=== PATIENT | female | born 1925 | race Caucasian/White ===

== ENCOUNTER 2016-10-19 20:10 | Inpatient (IN) | payer OTHER, BC ==
[~2016-10-19] VITALS: Ht 165.1 cm; Wt 52.6 kg
--- NOTE | ~2016-10-19 | EEG ---
[facility] [place] [address] ELECTROENCEPHALOGRAM Name: VICTOR M JEONG Room #: 463-P ADM IN M.R.#: [id number] Admission: 10/19/16 Attend Phys: Edin Waters MD Discharge: Date of : [birth year] Report #: [id number] THIS REPORT FOR: //name// CC: Fernando Waters DATE OF EE10/20/2016. This patient is being evaluated for the possibility of stroke. EEG was done by placing the electrodes by standard 10-20 system of electrode placement. Both referential and sequential montages were used for recording. Background activity does go up to about 8 Hz and 30 microvolt. This is a symmetrical activity. This patient goes to sleep that is associated with bilaterally symmetrical sleep spindle and vertex sharp waves. Throughout the record, no active epileptiform activity was noticed. IMPRESSION: This EEG is intermixed with moderate amount of slowing, but otherwise does not appear to be showing any active epileptiform activity. Thank you very much for this referral. <ELECTRONICALLY SIGNED> By: Kenji Werner MD 10/22/16 1322 1711 2036 Kenji Werner MD /nt
--- NOTE | ~2016-10-19 | HC ---
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 She apparently utilized a manual wheelchair and was able to get around her apartment. She had worsening right arm weakness, decreased sensation and worsening aphasia. The aphasia was noted to be severe and significant decreased use of that right upper extremity. She was evaluated and an MRI showed a large acute infarct left temporal area in the middle cerebral artery distribution. 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 Neurology is involved. She has been downgraded to a pureed diet. She obviously is frustrated with her difficulty in communicating. She is allowed some permissive hypertension. We are seeing her now in rehabilitation medicine consultation. PAST MEDICAL HISTORY: Includes the prior CVA in 2010, she had a humerus fracture in 2014, osteoarthritis, hypertension, anxiety, high cholesterol, lumbar spinal stenosis, hemorrhoids, and she has had a left wrist fracture. PAST SURGICAL HISTORY: Includes right lower leg surgeries including one apparently for a nonunion. She has had a cholecystectomy and GERD. PRIMARY CARE PHYSICIAN: Fernando Vogel MD HABITS: Nonsmoker. No history of ETOH use. MEDICATIONS: Please see the full medication listing. SOCIAL HISTORY: As noted above. She has been living in [facility] with 24-hour care. REVIEW OF SYSTEMS: Did not offer any current complaints of chest pain, shortness of breath, or abdominal discomfort. It was difficult to get the history from her with her significant aphasia. PHYSICAL EXAMINATION: GENERAL: She is a pleasant 89-year-old white female, obviously frustrated with her inability to communicate. She does attempt to say words, but I was unable to understandable what she was saying, appeared to be able to follow basic 1 step commands, but again is frustrated. VITAL SIGNS: Temperature is 98.1, pulse 70, respirations 20, and blood pressure 142/71. [address] [address] CONSULTATION Name: VICTOR M JEONG Room #: 3-[facility] IN .R.#: [id number] Admission: 10/19/16 Attend Phys: Edin Waters MD Discharge: 10/23/16 Date of : [birth year] Report #: [id number] HEENT: She is able to track with EOMs. She appears to have a depressed right nasolabial fold. EXTREMITIES: She does not use the right upper extremity, although she appears to have at least some volitional strength of it, probably less than antigravity. She appears to have functional use of that left upper extremity. Right lower extremity, it was difficult to test volitionally. She appears to have least antigravity strength. Left lower extremity appeared to have functional strength. Tone was slightly decreased, right upper and right lower extremity. I was unable to adequately assess sensation. Functionally, she is max assist with sit to stand. She has fair sitting balance. She is on a pureed diet with honey thickened liquids. ASSESSMENT: 1. Acute left hemispheric cerebrovascular accident with significant increased right hemiparesis and a severe aphasia. 2. Severe dysphagia, on pureed honey. 3. Premorbid cerebrovascular accident in 2010 with some mild right-sided hemiparesis and improved aphasia and dysphagia. 4. History of degenerative arthritis. 5. Hypertension. 6. Low back pain. 7. Elevated cholesterol. 8. Lumbar spinal stenosis. PLAN: Therapies are evaluating. We will be glad to assist regarding rehab therapy needs. She may be a candidate for an acute in-hospital inpatient rehabilitation stay. We will need to follow along with you regarding her rehab therapy needs. <ELECTRONICALLY SIGNED> By: Gaudencio Titus MD 11/29/16 1342 1435 04 Gaudencio Titus MD /nt
--- NOTE | ~2016-10-19 | EKG ---
[place] [address] [facility] [place] [address] ELECTROCARDIOGRAM REPORT Name: VICTOR M JEONG Room #: 463-P ADM IN M.R.#: [id number] Admission: 10/19/16 Attend Phys: Edin Waters MD Discharge: Date of : [birth year] Report #: [id number] THIS REPORT FOR: //name// [facility] ED Test Date: 2016-10-19 Test Time: 20:18:37 Pat Name: VICTOR M JEONG Department: Room: 463 Gender: F Adjunct Psychology Instructor: MZOOK : [id number] Requested By: Chris Trinidad Order Number: [id number] MD: Thang Packer Measurements Intervals Payette Rate: 84 P: ME: QRS: -33 QRSD: 86 T: -10 QT: 416 QTc: 492 Interpretive Statements Baseline artifact Sinus rhythm Nonspecific ST and T wave abnormality Compared to ECG 06/14/2016 17:48:33 No significant change was found Electronically Signed On 10-23-2016 8:11:18 WAREHOUSE INVENTORY CLERK by Thang Packer [email or web address] <ELECTRONICALLY SIGNED> By: Thang Packer MD, [facility] [id number] 17 17 Thang Packer MD, [facility] /EPI
[~2016-10-19 20:10] MED LIST: ACETAMINOPHEN325 M1 PO; AGGRENOX 25 MG1 EACH PO; AGGRENOX CAPSU1 EACH PO; AMBIEN 10 MG TA10 MG PO; AMBIEN PO; AMOXIL 875 MG875 M1 PO; ASPIRIN325 PO; ATIVAN0.5 MG PO; BIOFREEZE118 ML TP; BUSPIRONE HCL5 MG PO; CALCIUM 500 +1 EAC5 PO; CALCIUM 600 +1 EAC1 PO; CENTRUM SILVER1 EAC1 PO; CEPHALEXIN500 MG PO; CLOTRIM ANTIFUN15 GM RECTAL; COLACE100 MG PO; COZAAR 50 MG TA50 M2 PO; DAILY MULTIVIT1 EAC4 PO; DIOVAN 80 MG TA80 M1 PER TUBE; DIOVAN 80 MG TA80 M1 PO; DIOVAN PO; DOXYCYCLINE 10100 MG PO; ENOXAPARIN40 MG/0.1 SUBQ; FAMOTIDINE20 MG PO; FLOMAX0.4 MG PO; GLUCOSAMINE-CH1 EA33 PO; HYDROCODON-ACE1 EA11 PO; HYDROCODON-ACE1 EAC7 PO; HYDROCODONE-AP1 EACH PO; KLOR-CON 1010 MEQ PO; LASIX 20 MG TAB20 MG PO; LEXAPRO 10 MG T10 M1 PO; LIDODERM 5%1 PATC1 TOP; LIPITOR 10 MG10 M1 PO; LIPITOR10 MG PO; LISINOPRIL20 MG PO; MELOXICAM7.5 MG PO; METAMUCIL0.52 GM PO; MIRALAX255 GM PO; MOBIC7.5 MG PO; MORPHINE SULFAT15 M3 PO; MS CONTIN15 MG PO; NORCO 10-325 T1 EACH PO; NORVASC5 MG PO; NYSTATIN15 GM TP; OMEPRAZOLE20 M2 PO; OXYBUTYNIN ER 55 MG PO; OYSTER SHELL C1 EA14 PO; PANTOPRAZOLE SO40 M1 PO; PERCOCET 10-321 EACH; PERCOCET 10-321 EACH PO; PERCOCET 5-3251 EACH PO; PROTONIX40 M2 PO; REFRESH CLASSI1 EACH OP; REFRESH PLUS1 EACH OPHTHALMIC; REMERON15 MG PO; SENOKOT-S1 TA1 GT; SILVADENE20 GM TP; SIMVASTATIN40 MG PO; TEARS NATURALE1 EACH OPHTHALMIC; TEMAZEPAM7.5 MG PO; TRAZODONE HCL50 MG PO; TYLENOL325 MG PO; UNICOMPLEX M TA1 TA1 PO; VICODIN 5-5001 EACH PO; VITAMINC500 PO; VOLTAREN GEL 1100 GM TOP; WELCHOL 625 MG625 MG PO; WELLBUTRIN SR150 MG PO; XANAX 0.5 MG0.5 M1 PO; ZOCOR20 MG PO; ZOLOFT50 MG PO
[2016-10-19 20:12] VITALS: BP 152/83
[2016-10-19 20:29] LABS: POC CA IONIZED 4.7 mg/dL (4.5-5.3); POC CREATININE 1.3 mg/dL (0.6-1.3); POC HEMOGLOBIN 12.9 gm/dL (12.0-15.0); POC POTASSIUM 4.2 mmol/L (3.5-5.1)
[2016-10-19 20:37] LABS: ABSOLUTE NEUTROPHILS 3.2 thou/uL (1.4-8.2); BASOPHILS 0.6 % (0.0-2.0); EOSINOPHILS 2.4 % (0.0-3.0); HEMATOCRIT 37.9 % (37.0-47.0); HEMOGLOBIN 12.1 gm/dL (12.0-15.0); LYMPHOCYTES 36.5 % (24.0-44.0); MCH 28.1 pg (26.0-34.0); MCHC 32.1 % (28.0-37.0); MCV 87.6 fL (80.0-100.0); MONOCYTES 9.8 % (1.0-8.0); PLATELET COUNT 258 thou/uL (150-400); POLYS 50.7 % (36.0-66.0); RBC 4.32 mil/uL (4.20-5.00); RDW 14.8 % (10.5-14.5); WBC 6.3 thou/uL (4.0-11.0)
[2016-10-19 20:40] LABS: MANUAL DIFF NO
[2016-10-19 20:50] LABS: ANION GAP 10 mmol/L (7-16); BUN 18 mg/dL (7-18); CALCIUM 8.8 mg/dL (8.5-10.1); CHLORIDE 109 mmol/L (98-107); CO2 26 mmol/L (21-32); CREATININE 1.3 mg/dL (0.6-1.3); GLUCOSE 118 mg/dL (70-99); POTASSIUM 4.3 mmol/L (3.5-5.1); SODIUM 145 mmol/L (136-145)
[2016-10-19 20:51] LABS: APTT 26.6 Seconds (24.5-32.8); INR 1.1; PROTIME 10.9 Seconds (9.3-11.4)
[2016-10-19 20:59] LABS: ALBUMIN 3.6 g/dL (3.4-5.0); ALKALINE PHOSPHATASE 59 U/L (46-116); SGOT 11 U/L (15-37); SGPT 12 U/L (30-65); TOTAL BILIRUBIN 0.2 mg/dL (<0.1-1.0); TOTAL PROTEIN 6.9 g/dL (6.4-8.2); TROPONIN-I < 0.04 ng/mL (<0.04-0.07)
[2016-10-19 21:05] LABS: URINE BILIRUBIN NEGATIVE (Negative); URINE BLOOD NEGATIVE (Negative); URINE COLOR YELLOW; URINE GLUCOSE-RANDOM* NEGATIVE (Negative); URINE KETONES NEGATIVE (Negative); URINE NITRITE NEGATIVE (Negative); URINE PROTEIN (DIPSTICK) NEGATIVE (Negative); URINE SPECIFIC GRAVITY >= 1.030 (1.003-1.035); URINE UROBILINOGEN 0.2 E.U./dl (0.2-1.0)
[2016-10-19 21:13] LABS: AMP/METHAMP Negative (Negative); BARBITURATES Negative (Negative); BENZODIAZEPINES Negative (Negative); COCAINE Negative (Negative); METHADONE Negative (Negative); OPIATES POSITIVE (Negative); PCP Negative (Negative); THC Negative (Negative)
[2016-10-19 22:40] VITALS: BP 143/90
[2016-10-20 00:09] VITALS: BP 142/84
[2016-10-20 04:37] VITALS: BP 148/99
[2016-10-20 08:00] VITALS: BP 137/71
[2016-10-20 12:00] VITALS: BP 123/74
[2016-10-20 16:00] VITALS: BP 135/89
[2016-10-20 19:48] VITALS: BP 152/73
[2016-10-21 03:52] VITALS: BP 150/74
[2016-10-21 07:55] VITALS: BP 138/69
[2016-10-21 10:50] LABS: CHOLESTEROL 162 mg/dL (<200); HDL CHOLESTEROL 49 mg/dL (>40); LDL CHOLESTEROL 91 mg/dL (<100); TC:HDL 3.3 Ratio (Not establshd); TRIGLYCERIDE 114 mg/dL (<150); VLDL 23 mg/dL (<40)
[2016-10-21 12:00] VITALS: BP 132/68
[2016-10-21 16:00] VITALS: BP 145/71
[2016-10-21 16:10] LABS: FREE T4 1.01 ng/dL (0.82-1.77)
[2016-10-21 20:33] VITALS: BP 137/81
[2016-10-22 02:52] VITALS: BP 128/43
[2016-10-22 06:00] LABS: HEMATOCRIT 31.9 % (37.0-47.0); HEMOGLOBIN 10.3 gm/dL (12.0-15.0); MCH 28.9 pg (26.0-34.0); MCHC 32.3 % (28.0-37.0); MCV 89.4 fL (80.0-100.0); RBC 3.58 mil/uL (4.20-5.00); RDW 14.2 % (10.5-14.5); WBC 6.5 thou/uL (4.0-11.0)
[2016-10-22 06:20] LABS: ALBUMIN 2.8 g/dL (3.4-5.0); CALCIUM 7.8 mg/dL (8.5-10.1); CREATININE 0.8 mg/dL (0.6-1.3); MAGNESIUM 1.7 mg/dL (1.8-2.4); POTASSIUM 3.9 mmol/L (3.5-5.1); TOTAL BILIRUBIN 0.5 mg/dL (<0.1-1.0); TOTAL PROTEIN 5.6 g/dL (6.4-8.2)
[2016-10-22 08:03] VITALS: BP 127/77
[2016-10-22 11:30] VITALS: BP 132/72
[2016-10-22 16:26] VITALS: BP 150/90
[2016-10-22 19:30] VITALS: BP 148/77
[2016-10-23 04:52] VITALS: BP 145/74
[2016-10-23 07:14] VITALS: BP 139/80
[2016-10-23 11:16] VITALS: BP 142/71
[2016-10-23] MEDS ORDERED: ASPIRIN325 PO (17:24)
[2016-10-23] MEDS ORDERED: LIPITOR 20 MG T20 M1 PO (17:24)
== END 2016-10-23 18:34 | DRG 64 ==
LOC: ER 20:10 → EROBS 21:55 → 4W 21:55
PROVIDERS: Emergency Medicine; Nurse Practitioner Family
DX: I63.9 Cerebral infarction, unspecified (principal); G93.41 Metabolic encephalopathy; E43 Unspecified severe protein-calorie malnutrition; G81.91 Hemiplegia, unspecified affecting right dominant side; M19.90 Unspecified osteoarthritis, unspecified site; I10 Essential (primary) hypertension; F41.9 Anxiety disorder, unspecified; M48.06 Spinal stenosis, lumbar region; K21.9 Gastro-esophageal reflux disease without esophagitis; R47.01 Aphasia; R13.10 Dysphagia, unspecified; E78.00 Pure hypercholesterolemia, unspecified; R29.810 Facial weakness; E03.9 Hypothyroidism, unspecified; D64.9 Anemia, unspecified; Z87.81 Personal history of (healed) traumatic fracture; Z90.49 Acquired absence of other specified parts of digestive tract; Z88.6 Allergy status to analgesic agent; Z88.8 Allergy status to other drugs, medicaments and biological substances
CPT/HCPCS: 10045

== ENCOUNTER 2016-10-23 15:01 | Inpatient (IN) | payer OTHER, BC ==
[~2016-10-23] VITALS: Ht 165.1 cm; Wt 51.0 kg
--- NOTE | ~2016-10-23 | H ---
[facility] [place] [place] [address] HISTORY AND PHYSICAL Name: JEONGVICTOR M Room #: 505-P [facility] IN M.R.#: [id number] Admission: 10/23/16 Attend Phys: Gaudencio Titus MD Discharge: 10/31/16 Date of : [birth year] Report #: [id number] THIS REPORT FOR: //name// CC: Gaudencio Vogel DATE OF SERVICE: 10/24/2016 HISTORY OF PRESENT ILLNESS: The patient is an 89-year-old white female, who was previously known to me, who was admitted from her [facility] with worsening right arm weakness, decreased sensation and worsening aphasia. The patient has a prior history of a CVA in 2010, with some residual right-sided weakness and improved communication. She was able to express herself quite well, was living in the [facility], primarily at a wheelchair level, but could participate in feeding herself, groom herself, communicated well and could assist with transfers, although she did need some assistance as well. She was admitted at this time with significantly increased right-sided weakness and markedly worse communication. She was seen by Neurology, underwent an MRI scan, which showed a large acute infarct at the left temporal area in the middle cerebral artery distribution. 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 She was noted to have considerable receptive and expressive aphasia. She also was noted to have significant dysphagia and is on a pureed diet with honey-thickened liquids. She was noted to have a decline functionally and has been admitted now for an acute in-hospital inpatient rehabilitation stay. PAST MEDICAL HISTORY: Includes the prior CVA in 2010. She has had a history of a humerus fracture in 2015, osteoarthritis, hypertension, anxiety, elevated cholesterol, lumbar spinal stenosis, hemorrhoids and she has had a prior left wrist fracture. PAST SURGICAL HISTORY: Includes right lower leg surgeries including one apparently for a nonunion. She has had a cholecystectomy and a GERD. PRIMARY CARE PHYSICIAN: Fernando Vogel M.D. HABITS: Nonsmoker. No history of ETOH usage. MEDICATIONS: Please see the full medication listing. SOCIAL HISTORY: As noted above. She was living at her [facility]. REVIEW OF SYSTEMS: Did not offer any current complaints of chest pain, shortness of breath or abdominal discomfort. No specific complaints of pain involving her extremities. It was difficult to do a full review of systems with her significant communication deficits. [address] [address] HISTORY AND PHYSICAL Name: VICTOR M JEONG Room #: 505-P [facility] IN [facility].#: [id number] Admission: 10/23/16 Attend Phys: Gaudencio Titus MD Discharge: 10/31/16 Date of : [birth year] Report #: [id number] PHYSICAL EXAMINATION: GENERAL: An 89-year-old white female with obvious frustration with her inability to communicate. Some automatic phrases she is able to say. She does follow basic 1-step commands, although has difficulty with any complexity to the commands. VITAL SIGNS: Temperature 98.3, pulse 74, respirations 16 and blood pressure 148/76. HEENT: She does appear to have a depressed right nasolabial fold. EOMs appear to be full. Again, considerable difficulty with communication. She does try to say some words. CHEST: Sounded clear to auscultation. CARDIAC EXAMINATION: Regular rate and rhythm. ABDOMEN: Bowel sounds positive, nontender. EXTREMITIES: She is small statured and thin. No focal calf swelling. NEUROLOGIC: She is able to use that right upper extremity at least to grade 3+/5. Left upper extremity is more of a grade 4 to 4-/5. Right lower extremity appears to be at least antigravity strength. Left lower extremity is more of a grade 4-/5. Tone maybe somewhat decreased, right upper and right lower extremity. I was unable to adequately assess sensation. She has been max assist sit to stand with fair sitting balance. ASSESSMENT: An 89-year-old white female with the following problems: 1. Acute left hemispheric cerebrovascular accident with significant increased right hemiparesis and severe aphasia. 2. Severe dysphagia, on pureed diet with honey-thickened liquids. 3. Premorbid cerebrovascular accident in 2010 with some mild right-sided hemiparesis and improved aphasia and dysphagia. 4. History of degenerative arthritis. 5. Hypertension. 6. Low back pain. 7. Elevated cholesterol. 8. Lumbar spinal stenosis. PLAN: The patient is admitted for acute in-hospital inpatient rehabilitation. From a post-admission physician evaluation perspective, there are no relevant changes since the preadmission screening. Please see the above review of prior and current medical and functional conditions and comorbidities. Please see the patient's previous and current functional status. As far as risk of complications, she does have multiple medical comorbidities, as noted above. Initial plan of care involves the interdisciplinary acute inpatient rehabilitation program with PT and OT and nursing working with her. The interdisciplinary rehab team will be focusing on trying to maximize her functional independence. Her measurable functional goals would be for her to hopefully achieve a functional level at the wheelchair and to improve as far as her swallowing and communication so that she can return back to the [facility] with [address] [address] HISTORY AND PHYSICAL Name: VICTOR M JEONG Room #: 505-P DIS IN M.R.#: [id number] Admission: 10/23/16 Attend Phys: Gaudencio Titus MD Discharge: 10/31/16 Date of : [birth year] Report #: [id number] the assistance she had before. Prognosis is reasonably good, with estimated length of stay probably fairly short depending upon her needs and the assistance that she has at the [facility]. The goal again is to get her back to the point where they can handle her and get her back to her own [place]. Potential barriers would include her decreased functional status and her above-noted medical comorbidities. <ELECTRONICALLY SIGNED> By: Gaudencio Titus MD 11/29/16 1342 0937 1018 Gaudencio Titus MD /nt
--- NOTE | ~2016-10-23 | PLAN ---
[facility] [place] [address] REHAB UNIT PLAN OF CARE Name: VICTOR M JEONG Room #: 505-P [facility] IN M.R.#: [id number] Admission: 10/23/16 Attend Phys: Gaudencio Titus MD Discharge: 10/31/16 Date of : [birth year] Report #: [id number] THIS REPORT FOR: //name// CC: Gaudencio Vogel PROGRESS NOTE/OVERALL PLAN OF CARE DATE OF SERVICE: 10/26/2016. HISTORY OF PRESENT ILLNESS: The patient is seen back today in followup. She is in no distress. Last recorded temperature 36.4, pulse 70, respirations 16, blood pressure 106/73. She is able to do some very simple verbalization. She obvious she has some frustration with this. She has severe expressive and receptive deficits noted. Transfers have been max assist and she has been nonambulatory. Upper extremity dressing is dependent, lower extremity dressing is dependent. She does have the dysphagia and is on mechanical soft with honey thickened liquids. Per nursing, she has been needing around 50% of her meals. Last recorded labs from 10/24/2016 revealed a BUN of only 6 with a creatinine 0.7. ASSESSMENT: 1. Acute left hemispheric cerebrovascular accident with significant increase in right hemiparesis and severe aphasia. 2. Severe dysphagia, on pureed diet with honey thickened liquids. 3. Premorbid cerebrovascular accident in 2010 with some mild right-sided hemiparesis and improved aphasia and dysphagia. 4. History of degenerative arthritis. 5. Hypertension. 6. Low back pain. 7. Elevated cholesterol. 8. Lumbar spinal stenosis. PLAN: The overall plan of care is based on the preadmission screen, post-admission physician evaluation and information garnered from therapy assessments. 1. Estimated length of stay is probably pretty long with her lower functional level. 2. Medical prognosis is reasonably good. 3. Anticipated interventions includes the interdisciplinary acute inpatient rehabilitation program. PT, OT, speech, rehab nursing assisting regarding medication management, skin care prophylaxis, bowel and bladder issues and nursing education. We will have rehabilitation psychology involved and the area development consultant physician team. 4. Anticipated functional outcome would be for her to hopefully get back to the point where she is able to do some of the basic ADLs that she could do before and improve with her swallowing and communication and achieve the mobility that she was able to do at the wheelchair level previous. [facility] [address] [place] [address] REHAB UNIT PLAN OF CARE Name: VICTOR M JEONG Room #: 505-P DIS IN .R.#: [id number] Admission: 10/23/16 Attend Phys: Gaudencio Titus MD Discharge: 10/31/16 Date of : [birth year] Report #: [id number] 5. Discharge destination would be back to the home setting at her [facility] where she had assistance. 6. Expected therapy by discipline includes PT, OT and speech 1 hour per day each five days a week throughout the duration of the acute inpatient rehabilitation stay. <ELECTRONICALLY SIGNED> By: Gaudencio Titus MD 11/13/16 1617 0836 0923 Gaudencio Titus MD /nt
--- NOTE | ~2016-10-23 | D ---
[facility] [place] [address] DISCHARGE SUMMARY Name: VICTOR M JEONG Room #: 505-P [facility] IN M.R.#: [id number] Admission: 10/23/16 Attend Phys: Gaudencio Titus MD Discharge: 10/31/16 Date of : [birth year] Report #: [id number] THIS REPORT FOR: //name// CC: Gaudencio Vogel DATE OF SERVICE: 10/31/2016 ADDENDUM The patient missed some therapy on 10/30/2016, secondary to refusal. Please see the full discharge dictation. Training was completed with the caregiver in preparation for discharge back to the home setting. <ELECTRONICALLY SIGNED> By: Gaudencio Titus MD 11/29/16 1342 1012 1030 Gaudencio Titus MD /nt
--- NOTE | ~2016-10-23 | HC ---
[facility] [place] [address] CONSULTATION Name: VICTOR M JEONG Room #: 505-P [facility] IN M.R.#: [id number] Admission: 10/23/16 Attend Phys: Gaudencio Titus MD Discharge: 10/31/16 Date of : [birth year] Report #: [id number] THIS REPORT FOR: //name// CC: Gaudencio Titus Fernando Vogel DATE OF SERVICE: 10/28/2016 NEUROBEHAVIORAL STATUS EXAM AGE: 89. ATTENDING PHYSICIAN: Gaudencio Titus MD PROFESSOR OF LANGUAGES: Praveen Ashley, PhD. CLINICAL PRESENTATION: The patient is an 89-year-old female admitted to [facility] rehabilitation unit for comprehensive inpatient rehabilitation program to improve functional mobility, activities of daily living and self-care and mental status secondary to deficits from cerebrovascular accident. She was admitted from the [facility] with diminished verbal fluency. The patient is reported to have been functioning at a wheelchair level, but independent with feeding, grooming and communication. However, she began to experience significant right-sided weakness and severe deficits in communication. A MRI revealed a large acute cerebrovascular accident in the left temporal area being served by the middle cerebral artery distribution. 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 At this time, she presents with a receptive and expressive aphasia. Her assessment on admission to the rehabilitation included acute left hemisphere CVA with significant increased right hemiparesis, severe aphasia and dysphagia, premorbid CVA in 2010 with mild right hemiparesis, history of generative arthritis, hypertension, low back pain, elevated hip cholesterol with lumbar spinal stenosis. Her medications are reported to include aspirin, atorvastatin calcium, pantoprazole, dipyridamole, citalopram, multivitamin, oxybutynin chloride, buspirone, hydrocodone barbiturate p.r.n., magnesium hydroxide p.o., bisacodyl rectal at bedtime, sennosides, docusate and acetaminophen. A complete description of her medical condition, history and medications can be found in her medical record. Neuropsychological consultation was requested to provide assistance in the assessment of cognitive and emotional status and to provide recommendations and services. Prior to this most recent medical event, she was living at the [facility] and receiving 24 hour supervision and care. Her about 5 years ago. She has support from a niece and nephew. The patient is reported to have [facility] [address] [place] [address] CONSULTATION Name: VICTOR M JEONG Room #: 505-P [facility] IN M.R.#: [id number] Admission: 10/23/16 Attend Phys: Gaudencio Titus MD Discharge: 10/31/16 Date of : [birth year] Report #: [id number] had a Ph.D. 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 Premorbid level of functioning was very high. TECHNIQUES UTILIZED: Clinical interview, review of medical records, staff consultation and behavioral observation, mental status assessment. EXAMINATION FINDINGS: The patient was alert and cooperative during the assessment. However, she presents with a severe deficits in auditory comprehension and verbal expression. Evidence of perseverative speech was noted during the interview. The patient had severe difficulty in her attempts to accurately communicate her intended meaning. She appeared mildly frustrated with the deficits in communication. However, she was easily redirected and maintained good behavioral control during the assessment. Her presentation suggests poor comprehension with inconsistent fluid speech. Comprehension is severely impaired along with repetition. This type of presentation can be seen in a Wernicke's type of aphasia. DIAGNOSTIC IMPRESSION: Major neurocognitive disorder (dementia), due to vascular disease, with mild degree of frustration, severe at this time. RECOMMENDATIONS: The patient will likely require 24-hour care that includes assistance with the management of medication, finances and nutrition. Reassurance can be provided through nonverbal expressions of praise and compliments about her participation in rehabilitation. complements will assist in reducing anxiety during her treatment program. I will continue to follow as needed. Thank you for the opportunity to provide assessment on this patient. <ELECTRONICALLY SIGNED> By: Praveen Ashley, PhD 11/03/16 1529 1346 1735 Praveen Ashley, PhD /nt
[2016-10-23] MEDS ORDERED: LIPITOR 20 MG T20 M1 PO (17:24)
[2016-10-23] MEDS ORDERED: ASPIRIN325 PO (17:24)
[2016-10-23 18:40] VITALS: BP 167/98
[2016-10-24 04:29] VITALS: BP 148/76
[2016-10-24 06:39] LABS: HEMOGLOBIN 10.9 gm/dL (12.0-15.0); MCH 28.6 pg (26.0-34.0); MCHC 33.1 % (28.0-37.0); MCV 86.4 fL (80.0-100.0); RBC 3.82 mil/uL (4.20-5.00); RDW 14.4 % (10.5-14.5); WBC 7.2 thou/uL (4.0-11.0)
[2016-10-24 06:42] LABS: CALCIUM 8.4 mg/dL (8.5-10.1); CREATININE 0.7 mg/dL (0.6-1.3); POTASSIUM 4.2 mmol/L (3.5-5.1)
[2016-10-24 09:20] VITALS: BP 129/70
[2016-10-24 15:30] VITALS: BP 130/69
[2016-10-25 05:35] VITALS: BP 153/71
[2016-10-25 16:00] VITALS: BP 99/59
[2016-10-26 04:47] VITALS: BP 106/63
[2016-10-27 04:08] VITALS: BP 149/79
[2016-10-27 16:00] VITALS: BP 98/57
[2016-10-27 18:59] LABS: CALCIUM 8.6 mg/dL (8.5-10.1); CREATININE 1.2 mg/dL (0.6-1.3); POTASSIUM 4.1 mmol/L (3.5-5.1)
[2016-10-27 20:00] VITALS: BP 135/62
[2016-10-28 06:11] VITALS: BP 124/57
[2016-10-28 16:00] VITALS: BP 127/66
[2016-10-29 05:12] VITALS: BP 134/58
[2016-10-29 06:41] LABS: ABSOLUTE NEUTROPHILS 4.6 thou/uL (1.4-8.2); BASOPHILS 0.4 % (0.0-2.0); EOSINOPHILS 2.2 % (0.0-3.0); HEMATOCRIT 32.2 % (37.0-47.0); HEMOGLOBIN 10.4 gm/dL (12.0-15.0); LYMPHOCYTES 18.9 % (24.0-44.0); MCH 28.2 pg (26.0-34.0); MCHC 32.4 % (28.0-37.0); MCV 86.8 fL (80.0-100.0); MONOCYTES 10.2 % (1.0-8.0); PLATELET COUNT 226 thou/uL (150-400); POLYS 68.3 % (36.0-66.0); RBC 3.71 mil/uL (4.20-5.00); RDW 14.3 % (10.5-14.5); WBC 6.8 thou/uL (4.0-11.0)
[2016-10-29 06:46] LABS: MANUAL DIFF NO
[2016-10-29 06:54] LABS: ALBUMIN 2.9 g/dL (3.4-5.0); CALCIUM 8.5 mg/dL (8.5-10.1); CREATININE 0.8 mg/dL (0.6-1.3); POTASSIUM 4.2 mmol/L (3.5-5.1); TOTAL BILIRUBIN 0.4 mg/dL (<0.1-1.0); TOTAL PROTEIN 6.2 g/dL (6.4-8.2)
[2016-10-29 16:05] VITALS: BP 152/86
[2016-10-30 05:30] VITALS: BP 148/79
[2016-10-30 10:10] VITALS: BP 148/79
[2016-10-30] MEDS ORDERED: MILK OF MA2400 MG/10 PO (13:15)
[2016-10-30] MEDS ORDERED: COLACE 100 MG100 MG PO (13:15)
[2016-10-30] MEDS ORDERED: BUSPIRONE HCL5 MG PO (13:15)
[2016-10-31 05:18] VITALS: BP 139/83
[2016-10-31 09:32] VITALS: BP 148/79
== END 2016-10-31 14:00 | disposition home health service (06) | DRG 56 ==
PROVIDERS: Nurse Practitioner Family; Physical Medicine & Rehabilitation
DX: G81.91 Hemiplegia, unspecified affecting right dominant side (principal); E43 Unspecified severe protein-calorie malnutrition; G93.41 Metabolic encephalopathy; R47.01 Aphasia; R13.10 Dysphagia, unspecified; M19.90 Unspecified osteoarthritis, unspecified site; I10 Essential (primary) hypertension; E78.00 Pure hypercholesterolemia, unspecified; M48.06 Spinal stenosis, lumbar region; F01.50 Vascular dementia, unspecified severity, without behavioral disturbance, psychotic disturbance, mood disturbance, and anxiety; F03.90 Unspecified dementia, unspecified severity, without behavioral disturbance, psychotic disturbance, mood disturbance, and anxiety; I99.9 Unspecified disorder of circulatory system; E78.5 Hyperlipidemia, unspecified; K21.9 Gastro-esophageal reflux disease without esophagitis; D64.9 Anemia, unspecified; F41.9 Anxiety disorder, unspecified; F32.9 Major depressive disorder, single episode, unspecified; M54.5 Low back pain; N32.81 Overactive bladder; Z87.81 Personal history of (healed) traumatic fracture; Z90.49 Acquired absence of other specified parts of digestive tract; Z88.6 Allergy status to analgesic agent; Z88.8 Allergy status to other drugs, medicaments and biological substances
CPT/HCPCS: 10112